=== PATIENT | male | born 1985 | race Caucasian/White ===

== ENCOUNTER 2020-11-09 20:01 | Inpatient (IN) | payer OTHER ==
[~2020-11-09] VITALS: Ht 170.2 cm; Wt 60.5 kg
[2020-11-09 20:10] VITALS: BP 154/95
[2020-11-09 21:02] LABS: EOS % 0.1 % (1.0-4.0); HEMATOCRIT 36.2 % (42.0-52.0)
[2020-11-09 21:13] LABS: INTERNATIONAL NORM RATIO 1.1 (2.0-3.5)
[2020-11-09 21:17] LABS: BASO # 0.1 10*3/uL (0.0-0.1); BASO % 0.8 % (0.0-1.0); LYMPH % 12.4 % (27.0-41.0); MEAN CELL VOLUME 87.7 fl (80.0-94.0); MEAN CORPUSCULAR HGB CONC 36.5 g/dl (33.0-37.0); MEAN PLATELET VOLUME 8.8 fl (9.6-12.3); MONO # 0.4 10*3/uL (0.1-1.0); NEUT # 6.4 10*3/uL (2.3-7.9); NEUT % 81.2 % (47.0-73.0); PLATELET COUNT AUTOMATED 300 10*3/uL (130-400); RED BLOOD COUNT 4.13 10*6/uL (4.50-5.90); RED CELL DISTRI WIDTH 13.7 % (0-14.5); WHITE BLOOD COUNT 7.8 10*3/uL (4.8-10.8)
[2020-11-09 21:19] LABS: ALBUMIN 3.1 gm/dl (3.1-4.5); ALKALINE PHOSPHATASE 262 U/L (45-117); CHLORIDE 89 mmol/L (98-107); CREATININE 0.74 mg/dL (0.70-1.30); SGOT/AST 133 IU/L (3-35); SGPT/ALT 62 U/L (12-78); SODIUM 131 mmol/L (136-145); TOTAL PROTEIN 7.2 gm/dL (6.4-8.2)
[2020-11-09 21:24] LABS: BUN < 1 mg/dl (7-24); POTASSIUM 2.2 mmol/L (3.5-5.1); TROPONIN I < 0.015 ng/ml (<0.045)
[2020-11-09 22:16] LABS: BILIRUBIN 1+ (Negative); BLOOD Negative (Negative); CLARITY Clear (Clear); COLOR Dark Yellow (Yellow); GLUCOSE Negative (Negative); KETONE Negative (Negative); LEUKO ESTERASE Negative (Negative); NITRITE Negative (Negative)
[2020-11-09 22:25] LABS: URINE AMPHETAMINES < 1000 (1000ng/ml); URINE BARBITURATES > 200 (200ng/ml); URINE BENZODIAZEPINES < 200 (200ng/ml); URINE CANNABINOIDS (THC) > 50 (50ng/ml); URINE COCAINE < 300 (300ng/ml); URINE METHADONE < 300 (300ng/ml); URINE OPIATES < 300 (300ng/ml)
[2020-11-09 22:33] LABS: URINE PHENCYCLIDINE < 25 (25ng/ml)
[2020-11-10] VITALS (8 sets, daily range): BP systolic 114–144; BP diastolic 67–94
[2020-11-10 01:06] LABS: BUN 2 mg/dl (7-24); CHLORIDE 94 mmol/L (98-107); CREATININE 0.77 mg/dL (0.70-1.30); POTASSIUM 2.9 mmol/L (3.5-5.1); SODIUM 135 mmol/L (136-145)
[2020-11-11] VITALS: BP 125/96
[2020-11-11 04:00] VITALS: BP 134/94
[2020-11-11 07:10] LABS: BUN 3 mg/dl (7-24); CHLORIDE 96 mmol/L (98-107); CREATININE 0.39 mg/dL (0.70-1.30); POTASSIUM 2.7 mmol/L (3.5-5.1); SODIUM 135 mmol/L (136-145)
[2020-11-11 08:00] VITALS: BP 133/85
[2020-11-11 12:00] VITALS: BP 129/84
[2020-11-11 16:00] VITALS: BP 126/85
[2020-11-11 20:00] VITALS: BP 136/94
[2020-11-12] VITALS: BP 130/94
[2020-11-12 06:21] LABS: BASO # 0.1 10*3/uL (0.0-0.1); BASO % 0.8 % (0.0-1.0); EOS # 0.1 10*3/uL (0.0-0.4); EOS % 2.3 % (1.0-4.0); HEMATOCRIT 36.2 % (42.0-52.0); LYMPH # 1.6 10*3/uL (1.3-4.4); LYMPH % 25.4 % (27.0-41.0); MEAN CELL VOLUME 92.8 fl (80.0-94.0); MEAN CORPUSCULAR HGB 31.5 pg (27.0-31.0); MEAN PLATELET VOLUME 9.7 fl (9.6-12.3); MONO # 0.4 10*3/uL (0.1-1.0); NEUT # 3.9 10*3/uL (2.3-7.9); NEUT % 63.8 % (47.0-73.0); PLATELET COUNT AUTOMATED 174 10*3/uL (130-400); RED CELL DISTRI WIDTH 13.7 % (0-14.5); WHITE BLOOD COUNT 6.2 10*3/uL (4.8-10.8)
[2020-11-12 08:00] VITALS: BP 123/94
[2020-11-12] MEDS ORDERED: ATARAX,VISTARIL50 MG PO ×2 (09:54)
== END 2020-11-12 10:00 | disposition left against medical advice (07) | DRG 770 ==
LOC: ED 20:01 → EDHOLD 21:48 → ICCU 21:48 → 4E 11-11 20:15
PROVIDERS: Physician Assistant; Student in an Organized Health Care Education/Training Program; ADMIT Internal Medicine; ATTEND Internal Medicine
DX: F10.239 Alcohol dependence with withdrawal, unspecified (principal); E87.6 Hypokalemia; E87.1 Hypo-osmolality and hyponatremia; F17.210 Nicotine dependence, cigarettes, uncomplicated; R65.10 Systemic inflammatory response syndrome (SIRS) of non-infectious origin without acute organ dysfunction; F41.9 Anxiety disorder, unspecified; R74.8 Abnormal levels of other serum enzymes; Z53.29 Procedure and treatment not carried out because of patient's decision for other reasons; R73.9 Hyperglycemia, unspecified; D50.9 Iron deficiency anemia, unspecified; Z83.3 Family history of diabetes mellitus; Z82.49 Family history of ischemic heart disease and other diseases of the circulatory system; Z71.6 Tobacco abuse counseling

== ENCOUNTER 2020-12-17 17:39 | Inpatient (IN) | payer OTHER ==
[~2020-12-17] VITALS: Ht 167.6 cm; Wt 66.0 kg
[~2020-12-17 17:39] MED LIST: ATARAX,VISTARIL50 MG PO
[2020-12-17 17:44] VITALS: BP 130/88
[2020-12-17 18:28] LABS: ALKALINE PHOSPHATASE 197 U/L (45-117); BUN 3 mg/dl (7-24); CHLORIDE 90 mmol/L (98-107); CREATININE 0.76 mg/dL (0.70-1.30); LIPASE 538 U/L (73-393); SGOT/AST 323 IU/L (3-35); SGPT/ALT 100 U/L (12-78); SODIUM 135 mmol/L (136-145); TOTAL PROTEIN 7.2 gm/dL (6.4-8.2)
[2020-12-17 18:30] LABS: BASO # 0.1 10*3/uL (0.0-0.1); BASO % 1.5 % (0.0-1.0); EOS % 0.3 % (1.0-4.0); HEMATOCRIT 42.1 % (42.0-52.0); LYMPH # 1.8 10*3/uL (1.3-4.4); LYMPH % 23.1 % (27.0-41.0); MEAN CELL VOLUME 93.3 fl (80.0-94.0); MEAN CORPUSCULAR HGB 33.3 pg (27.0-31.0); MEAN CORPUSCULAR HGB CONC 35.6 g/dl (33.0-37.0); MEAN PLATELET VOLUME 9.5 fl (9.6-12.3); MONO # 0.7 10*3/uL (0.1-1.0); MONO % 9.8 % (3.0-9.0); NEUT # 4.9 10*3/uL (2.3-7.9); NEUT % 64.8 % (47.0-73.0); PLATELET COUNT AUTOMATED 219 10*3/uL (130-400); RED BLOOD COUNT 4.51 10*6/uL (4.50-5.90); RED CELL DISTRI WIDTH 13.5 % (0-14.5); WHITE BLOOD COUNT 7.6 10*3/uL (4.8-10.8)
[2020-12-17 18:35] LABS: ACETAMINOPHEN (TYLENOL) < 5.0 ug/ml (10-30); POTASSIUM 2.2 mmol/L (3.5-5.1)
[2020-12-17 19:11] VITALS: BP 125/91
[2020-12-17 19:59] LABS: INTERNATIONAL NORM RATIO 1.1 (2.0-3.5)
[2020-12-17 21:16] VITALS: BP 124/88
[2020-12-17 22:39] VITALS: BP 133/91
[2020-12-17 23:12] LABS: BILIRUBIN Negative (Negative); BLOOD Negative (Negative); CLARITY Clear (Clear); COLOR Yellow (Yellow); GLUCOSE Negative (Negative); KETONE Negative (Negative); LEUKO ESTERASE Negative (Negative); NITRITE Negative (Negative); PH 6.5 (4.5-8.0); SPECIFIC GRAVITY <= 1.005 (1.001-1.030)
[2020-12-17 23:21] LABS: URINE AMPHETAMINES < 1000 (1000ng/ml); URINE BARBITURATES < 200 (200ng/ml); URINE BENZODIAZEPINES < 200 (200ng/ml); URINE CANNABINOIDS (THC) > 50 (50ng/ml); URINE COCAINE < 300 (300ng/ml); URINE METHADONE < 300 (300ng/ml); URINE OPIATES < 300 (300ng/ml)
[2020-12-17 23:27] LABS: URINE PHENCYCLIDINE < 25 (25ng/ml)
[2020-12-17 23:59] LABS: BACTERIA TRACE; RBC 0-2 rbc/hpf (0-2); WBC 0-2 wbc/hpf (0-5)
[2020-12-18 01:40] VITALS: BP 134/92
[2020-12-18 03:45] VITALS: BP 143/99
[2020-12-18 05:10] VITALS: BP 148/92
[2020-12-18 05:55] VITALS: BP 129/87
[2020-12-18 06:13] LABS: ALBUMIN 2.7 gm/dl (3.1-4.5); ALKALINE PHOSPHATASE 164 U/L (45-117); BUN 3 mg/dl (7-24); CHLORIDE 95 mmol/L (98-107); CREATININE 0.67 mg/dL (0.70-1.30); LIPASE 851 U/L (73-393); POTASSIUM 2.9 mmol/L (3.5-5.1); SGOT/AST 406 IU/L (3-35); SGPT/ALT 95 U/L (12-78); SODIUM 136 mmol/L (136-145); TOTAL PROTEIN 6.1 gm/dL (6.4-8.2)
[2020-12-18 06:16] LABS: ETHYL ALCOHOL < 3.0 mg/dl (<3)
[2020-12-18 06:39] LABS: BASO # 0.1 10*3/uL (0.0-0.1); BASO % 0.8 % (0.0-1.0); EOS % 0.2 % (1.0-4.0); HEMATOCRIT 35.7 % (42.0-52.0); LYMPH # 0.9 10*3/uL (1.3-4.4); LYMPH % 15.3 % (27.0-41.0); MEAN CORPUSCULAR HGB 33.6 pg (27.0-31.0); MEAN CORPUSCULAR HGB CONC 34.7 g/dl (33.0-37.0); MEAN PLATELET VOLUME 10.2 fl (9.6-12.3); MONO # 0.5 10*3/uL (0.1-1.0); MONO % 8.9 % (3.0-9.0); NEUT # 4.5 10*3/uL (2.3-7.9); NEUT % 74.3 % (47.0-73.0); RED BLOOD COUNT 3.69 10*6/uL (4.50-5.90); RED CELL DISTRI WIDTH 13.7 % (0-14.5); WHITE BLOOD COUNT 6.1 10*3/uL (4.8-10.8)
[2020-12-18 06:42] LABS: MEAN CELL VOLUME 96.7 fl (80.0-94.0); PLATELET COUNT AUTOMATED 143 10*3/uL (130-400)
[2020-12-18 14:15] LABS: BUN 4 mg/dl (7-24); CHLORIDE 98 mmol/L (98-107); CREATININE 0.54 mg/dL (0.70-1.30); POTASSIUM 3.3 mmol/L (3.5-5.1); SODIUM 138 mmol/L (136-145)
[2020-12-18 16:06] VITALS: BP 122/81
[2020-12-18 20:00] VITALS: BP 133/86
[2020-12-19] VITALS: BP 134/90
[2020-12-19 06:27] LABS: ALBUMIN 2.8 gm/dl (3.1-4.5); BUN 4 mg/dl (7-24); CHLORIDE 97 mmol/L (98-107); CREATININE 0.58 mg/dL (0.70-1.30); POTASSIUM 3.2 mmol/L (3.5-5.1); SGOT/AST 362 IU/L (3-35); SGPT/ALT 109 U/L (12-78); SODIUM 133 mmol/L (136-145)
[2020-12-19 06:28] LABS: ALKALINE PHOSPHATASE 173 U/L (45-117); TOTAL PROTEIN 6.2 gm/dL (6.4-8.2)
[2020-12-19 06:34] LABS: BASO # 0.1 10*3/uL (0.0-0.1); BASO % 0.9 % (0.0-1.0); EOS # 0.2 10*3/uL (0.0-0.4); EOS % 3.3 % (1.0-4.0); HEMATOCRIT 35.6 % (42.0-52.0); LYMPH # 1.1 10*3/uL (1.3-4.4); LYMPH % 20.9 % (27.0-41.0); MEAN CELL VOLUME 97.3 fl (80.0-94.0); MEAN CORPUSCULAR HGB 33.9 pg (27.0-31.0); MEAN CORPUSCULAR HGB CONC 34.8 g/dl (33.0-37.0); MEAN PLATELET VOLUME 10.6 fl (9.6-12.3); MONO # 0.4 10*3/uL (0.1-1.0); MONO % 7.6 % (3.0-9.0); NEUT # 3.6 10*3/uL (2.3-7.9); NEUT % 66.7 % (47.0-73.0); PLATELET COUNT AUTOMATED 131 10*3/uL (130-400); RED BLOOD COUNT 3.66 10*6/uL (4.50-5.90); RED CELL DISTRI WIDTH 13.4 % (0-14.5); WHITE BLOOD COUNT 5.4 10*3/uL (4.8-10.8)
[2020-12-19 08:00] VITALS: BP 132/88
[2020-12-19 12:00] VITALS: BP 125/79
[2020-12-19 16:00] VITALS: BP 115/90
[2020-12-19 20:00] VITALS: BP 123/90
[2020-12-20] VITALS: BP 125/89
[2020-12-20 06:17] VITALS: BP 130/91
[2020-12-20 06:38] LABS: CHLORIDE 103 mmol/L (98-107); POTASSIUM 3.3 mmol/L (3.5-5.1); SODIUM 136 mmol/L (136-145)
[2020-12-20 06:47] LABS: ALBUMIN 2.9 gm/dl (3.1-4.5); ALKALINE PHOSPHATASE 163 U/L (45-117); BUN 3 mg/dl (7-24); CREATININE 0.67 mg/dL (0.70-1.30); LIPASE 311 U/L (73-393); SGOT/AST 175 IU/L (3-35); SGPT/ALT 87 U/L (12-78); TOTAL PROTEIN 6.5 gm/dL (6.4-8.2)
[2020-12-20 08:00] VITALS: BP 116/83
[2020-12-20 12:00] VITALS: BP 112/78
[2020-12-20 16:00] VITALS: BP 101/72
[2020-12-20 20:00] VITALS: BP 115/81
[2020-12-21] VITALS: BP 95/65
[2020-12-21 04:00] VITALS: BP 104/72
[2020-12-21 06:08] LABS: HEP B CORE AB, IGM Negative (Negative); HEPATITIS B SURFACE AG Negative (Negative); HEPATITIS C VIRUS ANTIBODY <0.1 s/co (0.0-0.9)
[2020-12-21 06:29] LABS: ALBUMIN 2.8 gm/dl (3.1-4.5); BUN 5 mg/dl (7-24); CHLORIDE 101 mmol/L (98-107); CREATININE 0.56 mg/dL (0.70-1.30); SGOT/AST 177 IU/L (3-35); SGPT/ALT 80 U/L (12-78); SODIUM 136 mmol/L (136-145)
[2020-12-21 06:33] LABS: BASO # 0.1 10*3/uL (0.0-0.1); EOS # 0.3 10*3/uL (0.0-0.4); EOS % 4.2 % (1.0-4.0); HEMATOCRIT 35.5 % (42.0-52.0); LYMPH # 1.4 10*3/uL (1.3-4.4); LYMPH % 22.3 % (27.0-41.0); MEAN CORPUSCULAR HGB 34.3 pg (27.0-31.0); MONO # 0.6 10*3/uL (0.1-1.0); MONO % 9.8 % (3.0-9.0); NEUT # 3.9 10*3/uL (2.3-7.9); NEUT % 62.1 % (47.0-73.0); PLATELET COUNT AUTOMATED 163 10*3/uL (130-400); RED BLOOD COUNT 3.41 10*6/uL (4.50-5.90); RED CELL DISTRI WIDTH 14.1 % (0-14.5); WHITE BLOOD COUNT 6.2 10*3/uL (4.8-10.8)
[2020-12-21 06:35] LABS: MEAN CELL VOLUME 104.1 fl (80.0-94.0)
[2020-12-21 06:39] LABS: ALKALINE PHOSPHATASE 153 U/L (45-117); POTASSIUM 4.4 mmol/L (3.5-5.1)
[2020-12-21 08:00] VITALS: BP 109/71
[2020-12-21 12:00] VITALS: BP 112/79
[2020-12-21 16:00] VITALS: BP 114/78; BP 184/65
[2020-12-21 20:00] VITALS: BP 114/60
[2020-12-22] VITALS: BP 114/80
[2020-12-22 06:53] LABS: ALBUMIN 2.6 gm/dl (3.1-4.5); BUN 5 mg/dl (7-24); CHLORIDE 104 mmol/L (98-107); CREATININE 0.49 mg/dL (0.70-1.30); POTASSIUM 4.4 mmol/L (3.5-5.1); SGOT/AST 158 IU/L (3-35); SGPT/ALT 79 U/L (12-78); SODIUM 136 mmol/L (136-145)
[2020-12-22 06:54] LABS: ALKALINE PHOSPHATASE 166 U/L (45-117); TOTAL PROTEIN 6.2 gm/dL (6.4-8.2)
[2020-12-22 08:00] VITALS: BP 105/72
[2020-12-22 12:00] VITALS: BP 112/76
[2020-12-22 16:00] VITALS: BP 95/57
[2020-12-22 20:00] VITALS: BP 120/58
[2020-12-23] VITALS: BP 125/92
[2020-12-23 04:00] VITALS: BP 96/59
[2020-12-23 06:16] LABS: BASO # 0.1 10*3/uL (0.0-0.1); EOS # 0.2 10*3/uL (0.0-0.4); EOS % 3.1 % (1.0-4.0); HEMATOCRIT 39.7 % (42.0-52.0); LYMPH # 1.8 10*3/uL (1.3-4.4); LYMPH % 24.5 % (27.0-41.0); MEAN CELL VOLUME 104.5 fl (80.0-94.0); MEAN CORPUSCULAR HGB 33.4 pg (27.0-31.0); MEAN PLATELET VOLUME 11.1 fl (9.6-12.3); MONO # 0.8 10*3/uL (0.1-1.0); MONO % 10.9 % (3.0-9.0); NEUT # 4.2 10*3/uL (2.3-7.9); NEUT % 59.5 % (47.0-73.0); PLATELET COUNT AUTOMATED 206 10*3/uL (130-400); WHITE BLOOD COUNT 7.1 10*3/uL (4.8-10.8)
[2020-12-23 06:35] LABS: BUN 4 mg/dl (7-24); CHLORIDE 99 mmol/L (98-107); POTASSIUM 4.7 mmol/L (3.5-5.1); SGPT/ALT 84 U/L (12-78); SODIUM 135 mmol/L (136-145)
[2020-12-23 06:38] LABS: ALKALINE PHOSPHATASE 179 U/L (45-117); CREATININE 0.53 mg/dL (0.70-1.30); SGOT/AST 132 IU/L (3-35); TOTAL PROTEIN 6.8 gm/dL (6.4-8.2)
[2020-12-23 08:00] VITALS: BP 109/80
[2020-12-23 12:00] VITALS: BP 115/74
[2020-12-23 16:00] VITALS: BP 116/84
[2020-12-23 20:00] VITALS: BP 106/71
[2020-12-24] VITALS: BP 110/78
[2020-12-24 04:00] VITALS: BP 133/77
[2020-12-24 06:15] LABS: BASO # 0.1 10*3/uL (0.0-0.1); BASO % 1.2 % (0.0-1.0); EOS # 0.2 10*3/uL (0.0-0.4); EOS % 2.2 % (1.0-4.0); HEMATOCRIT 39.9 % (42.0-52.0); LYMPH # 1.8 10*3/uL (1.3-4.4); LYMPH % 23.5 % (27.0-41.0); MEAN CELL VOLUME 103.4 fl (80.0-94.0); MEAN CORPUSCULAR HGB 33.7 pg (27.0-31.0); MEAN CORPUSCULAR HGB CONC 32.6 g/dl (33.0-37.0); MEAN PLATELET VOLUME 10.5 fl (9.6-12.3); MONO % 12.8 % (3.0-9.0); NEUT # 4.6 10*3/uL (2.3-7.9); NEUT % 58.9 % (47.0-73.0); PLATELET COUNT AUTOMATED 267 10*3/uL (130-400); RED BLOOD COUNT 3.86 10*6/uL (4.50-5.90); RED CELL DISTRI WIDTH 13.9 % (0-14.5); WHITE BLOOD COUNT 7.8 10*3/uL (4.8-10.8)
[2020-12-24 06:31] LABS: ALBUMIN 3.1 gm/dl (3.1-4.5); BUN 3 mg/dl (7-24); CHLORIDE 99 mmol/L (98-107); CREATININE 0.63 mg/dL (0.70-1.30); POTASSIUM 4.5 mmol/L (3.5-5.1); SGOT/AST 81 IU/L (3-35); SGPT/ALT 81 U/L (12-78); SODIUM 132 mmol/L (136-145); TOTAL PROTEIN 7.3 gm/dL (6.4-8.2)
[2020-12-24 06:32] LABS: ALKALINE PHOSPHATASE 186 U/L (45-117)
[2020-12-24 08:00] VITALS: BP 109/76
[2020-12-24 12:00] VITALS: BP 119/83
[2020-12-24 20:00] VITALS: BP 116/78
[2020-12-25] VITALS: BP 134/96
[2020-12-25 06:38] LABS: ALBUMIN 3.1 gm/dl (3.1-4.5); BUN 4 mg/dl (7-24); CHLORIDE 103 mmol/L (98-107); CREATININE 0.61 mg/dL (0.70-1.30); SGOT/AST 52 IU/L (3-35); SGPT/ALT 63 U/L (12-78)
[2020-12-25 06:39] LABS: ALKALINE PHOSPHATASE 165 U/L (45-117)
[2020-12-25 06:44] LABS: BASO # 0.1 10*3/uL (0.0-0.1); EOS % 0.5 % (1.0-4.0); HEMATOCRIT 37.9 % (42.0-52.0); LYMPH # 1.6 10*3/uL (1.3-4.4); LYMPH % 19.3 % (27.0-41.0); MEAN CELL VOLUME 101.1 fl (80.0-94.0); MEAN CORPUSCULAR HGB 33.9 pg (27.0-31.0); MEAN CORPUSCULAR HGB CONC 33.5 g/dl (33.0-37.0); MEAN PLATELET VOLUME 10.8 fl (9.6-12.3); MONO # 1.1 10*3/uL (0.1-1.0); MONO % 13.2 % (3.0-9.0); NEUT # 5.4 10*3/uL (2.3-7.9); PLATELET COUNT AUTOMATED 304 10*3/uL (130-400); RED BLOOD COUNT 3.75 10*6/uL (4.50-5.90); RED CELL DISTRI WIDTH 14.1 % (0-14.5); WHITE BLOOD COUNT 8.3 10*3/uL (4.8-10.8)
[2020-12-25 06:52] LABS: SODIUM 134 mmol/L (136-145)
[2020-12-25 06:54] LABS: POTASSIUM 3.4 mmol/L (3.5-5.1)
== END 2020-12-25 12:50 | disposition home or self-care (01) | DRG 775 ==
LOC: ED 17:39 → 4E 19:21 → EDHOLD 19:21 → 4E 12-18 11:06 → ICCU 12-20 07:30 → 4E 12-24 18:07
PROVIDERS: Family Medicine; Internal Medicine; Physician Assistant; Registered Nurse; ADMIT Emergency Medicine; ATTEND Emergency Medicine
DX: F10.231 Alcohol dependence with withdrawal delirium (principal); E87.6 Hypokalemia; E87.2 Acidosis; E83.42 Hypomagnesemia; R74.01 Elevation of levels of liver transaminase levels; E44.0 Moderate protein-calorie malnutrition; F17.210 Nicotine dependence, cigarettes, uncomplicated; F12.90 Cannabis use, unspecified, uncomplicated; Z68.23 Body mass index [BMI] 23.0-23.9, adult; D53.9 Nutritional anemia, unspecified; Z71.6 Tobacco abuse counseling; F41.9 Anxiety disorder, unspecified; R00.0 Tachycardia, unspecified; E87.1 Hypo-osmolality and hyponatremia; R73.9 Hyperglycemia, unspecified; Z82.49 Family history of ischemic heart disease and other diseases of the circulatory system; Z83.3 Family history of diabetes mellitus; R65.11 Systemic inflammatory response syndrome (SIRS) of non-infectious origin with acute organ dysfunction; G31.2 Degeneration of nervous system due to alcohol

== ENCOUNTER 2021-01-31 20:15 | Inpatient (IN) | payer OTHER ==
[~2021-01-31] VITALS: Ht 167.6 cm; Wt 61.4 kg
[2021-01-31 20:22] VITALS: BP 151/101
[2021-01-31 20:33] LABS: BASO # 0.1 10*3/uL (0.0-0.1); BASO % 1.5 % (0.0-1.0); EOS # 0.1 10*3/uL (0.0-0.4); EOS % 1.3 % (1.0-4.0); HEMATOCRIT 45.9 % (42.0-52.0); LYMPH # 3.8 10*3/uL (1.3-4.4); LYMPH % 47.6 % (27.0-41.0); MEAN CELL VOLUME 97.9 fl (80.0-94.0); MEAN CORPUSCULAR HGB 33.5 pg (27.0-31.0); MEAN CORPUSCULAR HGB CONC 34.2 g/dl (33.0-37.0); MEAN PLATELET VOLUME 9.1 fl (9.6-12.3); MONO # 0.8 10*3/uL (0.1-1.0); MONO % 9.6 % (3.0-9.0); NEUT # 3.2 10*3/uL (2.3-7.9); NEUT % 39.7 % (47.0-73.0); PLATELET COUNT AUTOMATED 447 10*3/uL (130-400); RED BLOOD COUNT 4.69 10*6/uL (4.50-5.90); RED CELL DISTRI WIDTH 14.2 % (0-14.5); WHITE BLOOD COUNT 7.9 10*3/uL (4.8-10.8)
[2021-01-31 20:44] LABS: ACT PARTIAL THROMBO TIME 26.8 SECONDS (20.0-32.1); INTERNATIONAL NORM RATIO 1.1 (2.0-3.5)
[2021-01-31 20:51] LABS: ALBUMIN 3.1 gm/dl (3.1-4.5); ALKALINE PHOSPHATASE 182 U/L (45-117); BUN 2 mg/dl (7-24); CHLORIDE 104 mmol/L (98-107); CREATININE 0.65 mg/dL (0.70-1.30); POTASSIUM 3.7 mmol/L (3.5-5.1); SGOT/AST 119 IU/L (3-35); SGPT/ALT 65 U/L (12-78); SODIUM 143 mmol/L (136-145); TOTAL PROTEIN 7.1 gm/dL (6.4-8.2)
[2021-01-31 20:52] LABS: TROPONIN I < 0.015 ng/ml (<0.045)
[2021-02-01 07:54] VITALS: BP 128/89
[2021-02-01 09:49] VITALS: BP 128/95
[2021-02-01 10:58] VITALS: BP 134/99
[2021-02-01 16:00] VITALS: BP 129/92
[2021-02-01 20:00] VITALS: BP 137/84
[2021-02-02] VITALS: BP 131/79
[2021-02-02 06:29] LABS: BILIRUBIN 2+ (Negative); BLOOD Negative (Negative); CLARITY Clear (Clear); GLUCOSE Negative (Negative); KETONE Negative (Negative); NITRITE Positive (Negative)
[2021-02-02 06:34] LABS: PH >= 9.0 (4.5-8.0)
[2021-02-02 06:39] LABS: URINE AMPHETAMINES < 1000 (1000ng/ml); URINE BARBITURATES > 200 (200ng/ml); URINE BENZODIAZEPINES > 200 (200ng/ml); URINE CANNABINOIDS (THC) > 50 (50ng/ml); URINE COCAINE < 300 (300ng/ml); URINE METHADONE < 300 (300ng/ml); URINE OPIATES < 300 (300ng/ml)
[2021-02-02 06:48] LABS: URINE PHENCYCLIDINE < 25 (25ng/ml)
[2021-02-02 06:49] LABS: BACTERIA TRACE; COLOR Orange (Yellow); HYALINE CAST 0-2; LEUKO ESTERASE 1+ (Negative); MUCOUS 1+; WBC 0-2 wbc/hpf (0-5)
[2021-02-02 08:00] VITALS: BP 141/95
[2021-02-02 12:00] VITALS: BP 134/108; BP 160/90
[2021-02-02 16:00] VITALS: BP 131/96
[2021-02-02 20:00] VITALS: BP 130/52; BP 143/99
[2021-02-03] VITALS: BP 118/83
[2021-02-03 08:00] VITALS: BP 115/80
== END 2021-02-03 10:58 | disposition left against medical advice (07) | DRG 770 ==
LOC: ED 20:15 → 4E 02-01 09:39 → EDHOLD 02-01 09:39 → 4E 02-01 10:27
PROVIDERS: Family Medicine; Internal Medicine; ADMIT Student in an Organized Health Care Education/Training Program; ATTEND Student in an Organized Health Care Education/Training Program
DX: F10.230 Alcohol dependence with withdrawal, uncomplicated (principal); D53.9 Nutritional anemia, unspecified; F12.90 Cannabis use, unspecified, uncomplicated; R73.9 Hyperglycemia, unspecified; R74.01 Elevation of levels of liver transaminase levels; F41.9 Anxiety disorder, unspecified; F17.200 Nicotine dependence, unspecified, uncomplicated; D75.89 Other specified diseases of blood and blood-forming organs; E44.0 Moderate protein-calorie malnutrition; D47.3 Essential (hemorrhagic) thrombocythemia; Z71.6 Tobacco abuse counseling; Z82.49 Family history of ischemic heart disease and other diseases of the circulatory system

== ENCOUNTER 2021-03-26 13:04 | Emergency (ER) | payer OTHER ==
[~2021-03-26] VITALS: Ht 177.8 cm; Wt 55.8 kg
[2021-03-26 14:07] LABS: ACT PARTIAL THROMBO TIME 47.3 SECONDS (20.0-32.1); INTERNATIONAL NORM RATIO 2.7 (2.0-3.5)
[2021-03-26 14:14] LABS: MEAN CELL VOLUME 85.2 fl (80.0-94.0); MEAN CORPUSCULAR HGB 32.8 pg (27.0-31.0); MEAN PLATELET VOLUME 10.8 fl (9.6-12.3); NUCLEATED RED BLOOD CELL 0.1 10*3/uL (0.0-0.0); NUCLEATED RED BLOOD CELL 0.3 % (0.0-0.0); PLATELET COUNT AUTOMATED 242 10*3/uL (130-400); RED BLOOD COUNT 3.05 10*6/uL (4.50-5.90); RED CELL DISTRI WIDTH 13.8 % (0-14.5); WHITE BLOOD COUNT 20.1 10*3/uL (4.8-10.8)
[2021-03-26 14:18] LABS: MEAN CORPUSCULAR HGB CONC 38.5 g/dl (33.0-37.0)
[2021-03-26 14:20] LABS: ALBUMIN 2.2 gm/dl (3.1-4.5); ALKALINE PHOSPHATASE 197 U/L (45-117); BUN 12 mg/dl (7-24); CREATININE 1.64 mg/dL (0.70-1.30); LIPASE 42 U/L (73-393); SGOT/AST 432 IU/L (3-35); SGPT/ALT 124 U/L (12-78)
[2021-03-26 14:21] LABS: TOTAL CELLS COUNTED 100 #CELLS
[2021-03-26 14:22] LABS: PLATELET SUFFICIENCY NORMAL (NORMAL)
[2021-03-26 14:48] LABS: TOTAL PROTEIN 5.7 gm/dL (6.4-8.2)
[2021-03-26 14:49] LABS: ACETAMINOPHEN (TYLENOL) < 5.0 ug/ml (10-30); ETHYL ALCOHOL < 3.0 mg/dl (<3); TROPONIN I < 0.015 ng/ml (<0.045)
[2021-03-26 14:52] LABS: CHLORIDE 67 mmol/L (98-107); POTASSIUM 1.8 mmol/L (3.5-5.1)
[2021-03-26 14:56] LABS: SODIUM 109 mmol/L (136-145)
== END 2021-03-26 16:37 | disposition short-term general hospital (02) ==
LOC: ED 13:04
PROVIDERS: Emergency Medicine
DX: K72.90 Hepatic failure, unspecified without coma (principal); E87.6 Hypokalemia; E87.1 Hypo-osmolality and hyponatremia; R41.82 Altered mental status, unspecified; F17.210 Nicotine dependence, cigarettes, uncomplicated